=== PATIENT | female | born 1955 | race Caucasian/White ===

== ENCOUNTER → 2016-09-12 11:31 | Outpatient (CLI) | payer BC ==
[2015-09-03 09:14] VITALS: BMI 33.8
[~2016-09-12 11:31] MED LIST: ADIPEX-P37.5 MG PO; EFFEXOR XR150 MG PO; GABAPENTIN100 MG PO; LASIX20 MG PO; MAXZIDE 75/501 TAB PO; PRILOSEC20 MG PO; RIVASTIGMINE1.5 MG PO; SYNTHROID100 MCG PO; WELLBUTRIN SR150 MG PO
[2016-09-13 10:18] LABS: ANA REFLEX - DIRECT Negative (Negative)
[2016-09-20 12:23] LABS: % SATURATION 24 % (15-55); IRON 80 ug/dl (35-150); TOTAL IRON BIND CAPACITY 333 ug/dl (260-445); UNSAT IRON BIND CAPACITY 253 ug/dl (150-375)
[2016-09-21 08:23] LABS: ALPHA FETOPROTEIN -(TUMOR MRK) 2.4 ng/mL (0.0-8.3)
== END | disposition home or self-care (01) ==
LOC: D.LAB 11:31
PROVIDERS: Internal Medicine Gastroenterology
DX: R79.89 Other specified abnormal findings of blood chemistry (principal)

== ENCOUNTER 2016-12-14 05:42 | Day surgery (SDC) | payer BC ==
[2016-12-12 13:30] LABS: BASOPHILS 0.2 % (0-2); EOSINOPHILS 3.2 % (0-7); HEMATOCRIT 44.7 % (36.0-48.0); HEMOGLOBIN 15.3 g/dL (12-16); IMMATURE GRANULOCYTES 0.1 % (0-5); LYMPHOCYTES 22.2 % (15-50); MCH 32.5 pg (26.0-34.0); MCHC 34.2 g/dL (31.0-37.0); MCV 94.9 fL (80.0-100.0); MEAN PLATELET VOLUME 8.9 fL (7.4-10.4); MONOCYTES 8.6 % (2-11); NEUTROPHILS 65.7 % (40-80); PLATELET COUNT 304 10x3/uL (130-400); RBC 4.71 10x6/uL (4.00-5.40); RDW 13.5 % (11.5-14.5); WBC 8.1 10x3/uL (4.8-10.8)
[2016-12-12 13:46] LABS: CALC OSMOLALITY 281 mosm/kg (275-300); CALCIUM 9.1 mg/dL (8.5-10.1); CARBON DIOXIDE 34.8 mmol/L (21.0-32.0); CHLORIDE - SERUM 102 mmol/L (98-107); CREATININE - SERUM 0.7 mg/dL (0.6-1.3); GLUCOSE 103 mg/dL (74-106); POTASSIUM - SERUM 3.5 mmol/L (3.5-5.1); SODIUM 141 mmol/L (136-145); UREA NITROGEN 14 mg/dL (7-18); eGFR NON AFRICAN AMERICAN > 90 mL/min (90-120)
[~2016-12-14] VITALS: Ht 165.1 cm; Wt 90.7 kg
--- NOTE | ~2016-12-14 | OP ---
PATIENT NAME: PASCALE OLVERA MEDICAL RECORD: [id number] :59 LOCATION:D.OPS ADMISSION DATE: SURGEON: KIMBERLEE MAHONEY MD DATE OF OPERATION: 12/14/2016 PREOPERATIVE DIAGNOSES: 1. Postmenopausal bleeding. 2. Endometrial thickening. POSTOPERATIVE DIAGNOSES: 1. Postmenopausal bleeding. 2. Endometrial thickening 3. Endometrial polyp. PROCEDURE: Hysteroscopy, dilation and curettage. SURGEON: Kimberlee Mahoney. ESTIMATED BLOOD LOSS: Minimal. INTRAVENOUS FLUIDS: Per anesthesia records, she just got a fluid loss of less than 100 cc of 0.9 normal saline. SPECIMENS: Endometrial curettings. COMPLICATIONS: None apparent. FINDINGS: 1. Grossly abnormal-appearing endometrial cavity. 2. Smaller lower uterine segment endometrial polyp. DESCRIPTION PROCEDURE: The patient was taken to the operating room where general anesthesia was achieved without difficulty. The patient was then prepped and draped in normal sterile fashion in dorsal lithotomy position in the [facility]. SCDs were on and functioning normally. At this point after vaginal prep, the bladder was drained of approximately 50 cc of straw colored urine. A Graves speculum was then placed in the vagina and the cervix was identified. Cervix was then grasped with a single tooth tenaculum on its anterior lip. A small amount of stenosis was noted; however, was broken up using a small dilator. At this point, the uterus was sounded to approximately 8-9 cm. Dilation was performed at approximately 6 mm, at which point, the hysteroscope was placed into the intrauterine cavity under direct visualization. Survey was then performed and then curettage was performed with a #1 curette with attention paid to the area of the polyp. Minimal bleeding noted at that time D&C was completed. Tenaculum was removed. The patient tolerated the procedure well, transferred to postanesthesia recovery stable without incident. TRANSINT:[id number] Voice Confirmation ID: [id number] DOCUMENT ID: [id number] OPERATIVE REPORT [id number] PASCALE OLVERA KIMBERLEE MAHONEY MD CC: [id number] DICTATION DATE: 12/14/16 0822 METALLURGICAL SPECIALIST: 12/14/16 1716 [facility] 12/14/16 [place] [address]
[~2016-12-14 05:42] MED LIST changes: +CYCLOBENZAPRINE10 MG PO; +FUROSEMIDE20 MG PO; -LASIX20 MG PO; +VALIUM5 MG PO
[2016-12-14 06:36] VITALS: BP 122/55; Ht 165.1 cm; Wt 90.7 kg
[2016-12-14 06:44] LABS: HCG URINE NEGATIVE (NEGATIVE)
--- NOTE | 2016-12-14 09:47 | NUR ---
0945--PT ABLE TO VOID WITHOUT DIFFICULTY, IV DC'Brigida. CLAY KATZ
--- NOTE | 2016-12-14 10:10 | NUR ---
1000--DISCHARGE INSTRUCTIONS GIVEN, PT VERBALIZES UNDERSTANDING. PT OFF UNIT VIA CASANDRA. CLAY KATZ
== END 2016-12-14 10:00 | disposition home or self-care (01) ==
LOC: D.OPS 05:42 → D.PAN 07:30 → D.OPS 08:30
PROVIDERS: Obstetrics & Gynecology
DX: N95.0 Postmenopausal bleeding (principal); R93.8 Abnormal findings on diagnostic imaging of other specified body structures; N84.0 Polyp of corpus uteri

== ENCOUNTER → 2017-11-21 15:41 | Outpatient (CLI) | payer BC ==
[2016-12-14 06:36] VITALS: BMI 33.3
[2017-11-21 16:50] LABS: ALBUMIN 3.9 g/dL (3.4-5.0); BILIRUBIN - DIRECT 0.15 mg/dL (0.00-0.30); BILIRUBIN - INDIRECT 0.27 mg/dL (0.00-1.00); BILIRUBIN - TOTAL 0.42 mg/dL (0.2-1.3); PROTEIN - SERUM 7.5 g/dL (6.4-8.2)
== END | disposition home or self-care (01) ==
LOC: D.LAB 11-20 09:30
PROVIDERS: Internal Medicine Gastroenterology
DX: K76.0 Fatty (change of) liver, not elsewhere classified (principal); R79.89 Other specified abnormal findings of blood chemistry

== ENCOUNTER → 2018-04-03 17:00 | Outpatient (CLI) | payer BC ==
[2016-12-14 06:36] VITALS: BMI 33.3
== END | disposition home or self-care (01) ==
LOC: D.MAMMO 09:45
DX: Z12.31 Encounter for screening mammogram for malignant neoplasm of breast (principal)

== ENCOUNTER → 2018-04-23 06:41 | Outpatient (CLI) | payer BC ==
[2016-12-14 06:36] VITALS: BMI 33.3
== END | disposition home or self-care (01) ==
LOC: D.US 06:41
DX: R19.00 Intra-abdominal and pelvic swelling, mass and lump, unspecified site (principal)

== ENCOUNTER → 2018-05-01 11:00 | Outpatient (CLI) | payer BC ==
[2016-12-14 06:36] VITALS: BMI 33.3
== END | disposition home or self-care (01) ==
LOC: D.CT 11:00
DX: K43.9 Ventral hernia without obstruction or gangrene (principal)

== ENCOUNTER 2018-07-01 08:00 | Outpatient (CLI) | payer BC ==
[2016-12-14 06:36] VITALS: BMI 33.3
== END 2018-07-01 09:00 | disposition home or self-care (01) ==
LOC: D.MAMMO 08:00
DX: R92.8 Other abnormal and inconclusive findings on diagnostic imaging of breast (principal)

== ENCOUNTER → 2018-10-29 06:55 | Outpatient (CLI) | payer OTHER ==
[2018-10-29 07:37] LABS: BASOPHILS 0.3 % (0-2); EOSINOPHILS 3.3 % (0-7); HEMATOCRIT 43.9 % (36.0-48.0); HEMOGLOBIN 15.3 g/dL (12-16); LYMPHOCYTES 23.3 % (15-50); MCH 32.3 pg (26.0-34.0); MCHC 34.9 g/dL (31.0-37.0); MCV 92.6 fL (80.0-100.0); MEAN PLATELET VOLUME 8.9 fL (7.4-10.4); MONOCYTES 8.4 % (2-11); NEUTROPHILS 64.7 % (40-80); PLATELET COUNT 281 10x3/uL (130-400); RBC 4.74 10x6/uL (4.00-5.40); RDW 12.4 % (11.5-14.5)
[2018-10-29 08:00] LABS: ALBUMIN 3.6 g/dL (3.4-5.0); ALKALINE PHOSPHATASE 131 U/L (46-116); ALT (SGPT) 73 U/L (10-68); BILIRUBIN - TOTAL 0.43 mg/dL (0.2-1.3); CALC OSMOLALITY 289 mosm/kg (275-300); CALCIUM 8.8 mg/dL (8.5-10.1); CARBON DIOXIDE 33.9 mmol/L (21.0-32.0); CHLORIDE - SERUM 102 mmol/L (98-107); CHOL - HDL RATIO 3.3 ratio (2.3-4.1); CHOLESTEROL, TOTAL 208 mg/dL (0-200); CREATININE - SERUM 0.8 mg/dL (0.6-1.3); GLUCOSE 108 mg/dL (74-106); HDL CHOLESTEROL 63 mg/dL (32-96); LDL CHOLESTEROL 129 mg/dL (0-100); POTASSIUM - SERUM 3.6 mmol/L (3.5-5.1); PROTEIN - SERUM 7.1 g/dL (6.4-8.2); SODIUM 143 mmol/L (136-145); T4 THYROXINE 7.2 ug/dL (4.7-13.3); THYROID STIMULATING HORMONE 3.89 uIU/mL (0.36-3.74); TRIGLYCERIDE 83 mg/dL (30-200); UREA NITROGEN 24 mg/dL (7-18); eGFR NON AFRICAN AMERICAN 77 mL/min (90-120)
== END | disposition home or self-care (01) ==
LOC: D.LAB 06:55
PROVIDERS: Emergency Medicine
DX: E03.9 Hypothyroidism, unspecified (principal)

== ENCOUNTER 2019-05-21 08:00 | Outpatient (CLI) | payer OTHER ==
[2016-12-14 06:36] VITALS: BMI 33.3
== END 2019-05-21 23:59 | disposition home or self-care (01) ==
LOC: D.MAMMO 08:00
PROVIDERS: ATTEND Family Medicine
DX: Z12.31 Encounter for screening mammogram for malignant neoplasm of breast (principal)

== ENCOUNTER 2020-04-16 07:59 | Day surgery (SDC) | payer OTHER ==
[2020-04-14 13:59] LABS: BASOPHILS 0.4 % (0-2); EOSINOPHILS 2.7 % (0-7); HEMATOCRIT 43.6 % (36.0-48.0); HEMOGLOBIN 14.7 g/dL (12-16); IMMATURE GRANULOCYTES 0.1 % (0-5); LYMPHOCYTES 25.2 % (15-50); MCH 32.7 pg (26.0-34.0); MCHC 33.7 g/dL (31.0-37.0); MCV 96.9 fL (80.0-100.0); MONOCYTES 7.1 % (2-11); NEUTROPHILS 64.5 % (40-80); PLATELET COUNT 297 10x3/uL (130-400); RDW 12.4 % (11.5-14.5); WBC 7.5 10x3/uL (4.8-10.8)
[~2020-04-16] VITALS: Ht 165.1 cm; Wt 104.3 kg
--- NOTE | ~2020-04-16 | OP ---
PATIENT NAME: PASCALE OLVERA MEDICAL RECORD: [id number] :59 LOCATION:D.[facility] ADMISSION DATE: SURGEON: KIMBERLEE MAHONEY MD DATE OF OPERATION: 04/16/2020 PREOPERATIVE DIAGNOSIS: Postmenopausal bleeding. PREOPERATIVE DIAGNOSIS: Postmenopausal bleeding. PROCEDURE: Hysteroscopy, dilation and curettage. SURGEON: Kimberlee Mahoney MD ANESTHESIA: General endotracheal. INTRAVENOUS FLUIDS: Per anesthesia record. HYSTEROSCOPIC FLUID LOSS: Less than 50 mL of 0.9 normal saline. FINDINGS: 1. Grossly normal external genitalia and cervix. 2. Grossly normal appearing endometrial canal. SPECIMENS: Include endometrial curettings. COMPLICATIONS: None apparent. DESCRIPTION OF PROCEDURE: The patient was taken to the operating room where general anesthesia was achieved without difficulty. The patient was then prepped and draped in normal sterile fashion in the dorsal lithotomy position in [facility]. At this point, the patient was prepped and draped and bladder drained of approximately 150 mL of clear yellow urine. A Graves speculum was then placed into the vagina. The cervix was identified and grasped on its anterior lip with a single-tooth tenaculum. At this point, the patient was dilated to approximately 5 mm using the Ruth dilators and hysteroscope was introduced into the cervix. The endometrial canal was thoroughly surveyed and then further dilation to approximately 8 mm was performed to allow entry of a #1 curette and a 4-quadrant curettage was then performed without difficulty. Following the curettage, the hysteroscope was reintroduced into the cervix and survey of the endometrium was again performed and obvious curetting was noted in all 4 quadrants in an attempt to assure a good sample. The hysteroscope was then removed and the tenaculum removed. The patient tolerated the procedure well, transferred to the postanesthesia recovery stable without incident. NTS:[id number] Voice Confirmation ID: [id number] DOCUMENT ID: [id number] KIMBERLEE MAHONEY MD CC: [id number] DICTATION DATE: 04/19/20630 STAKING ENGINEER: 04/19/201818 [facility] 04/16/20 [id number] [place] [address]
[2020-04-16 08:44] VITALS: BP 133/67; Ht 165.1 cm; Wt 104.3 kg
[2020-04-16] MEDS ORDERED: MAXZIDE 75/501 TAB PO (08:55)
[2020-04-16] MEDS ORDERED: TOPAMAX SPRINKL PO (08:56)
--- NOTE | 2020-04-16 15:45 | NUR ---
1450 IV D/C'D WITH CANNULA INTACT, PRESSURE HELD AND DRSG PLACED. DISCHARGE INSTRUCTION GIVEN AND PT VERBALIZED AN UNDERSTANDING. SCANT VAGINAL DRAINAGE, DISCHARGED HOME IN STABLE CONDITION AND W/O C/O
== END 2020-04-16 14:55 | disposition home or self-care (01) ==
LOC: D.OPS 07:59 → D.PAN 08:45 → D.OPS 08:45 → D.PAN 09:55 → D.OPS 14:55
PROVIDERS: ATTEND Obstetrics & Gynecology
DX: N95.0 Postmenopausal bleeding (principal); D25.9 Leiomyoma of uterus, unspecified